=== PATIENT | male | born 1960 | race African-American/Black ===

== ENCOUNTER 2024-11-22 12:51 | Emergency (ER) | payer SELFPAY ==
[2024-11-22] MEDS: Lactulose Soln 10 GM/15 ML 30 ML UD Cup PO ONE (13:56)
== END 2024-11-22 14:05 | disposition home or self-care (01) ==
LOC: JD.ED 12:51
DX: K59.00 Constipation, unspecified (principal); I13.2 Hypertensive heart and chronic kidney disease with heart failure and with stage 5 chronic kidney disease, or end stage renal disease; I50.9 Heart failure, unspecified; N18.6 End stage renal disease; E11.22 Type 2 diabetes mellitus with diabetic chronic kidney disease; Z79.899 Other long term (current) drug therapy; Z99.2 Dependence on renal dialysis
CPT/HCPCS: 74018; 99284; A9270